=== PATIENT | female | born 1950 | race Caucasian/White ===

== ENCOUNTER 2017-10-31 12:56 | Observation (INO) | payer BC ==
[2017-10-31 13:43] LABS: ADD MAN DIFF? NO
[2017-10-31 13:47] LABS: BASOPHILS % 0.5 % (0.0-2.0); EOSINOPHILS # 0.1 10^3/ul (0.0-0.5); EOSINOPHILS % 0.9 % (0.0-7.0); HEMATOCRIT 40.9 % (37.0-47.0); LYMPHOCYTES # 1.4 10^3/ul (0.8-2.9); LYMPHOCYTES % 21.5 % (15.0-51.0); MEAN CORPUSCULAR HEMOGLOBIN 27.8 pg (29.0-33.0); MEAN CORPUSCULAR HGB CONC 31.8 g/dl (32.0-37.0); MEAN CORPUSCULAR VOLUME 87.4 fl (82.0-101.0); MEAN PLATELET VOLUME 10.1 fl (7.4-10.4); MONOCYTE # 0.5 10^3/ul (0.3-0.9); MONOCYTES % 7.9 % (0.0-11.0); NEUTROPHIL # 4.4 10^3/ul (1.6-7.5); NEUTROPHILS % 68.9 % (39.0-77.0); PLATELET COUNT 232 10^3/UL (140-415); RED BLOOD COUNT 4.68 10^6/ul (4.20-5.40); RED CELL DISTRIBUTION WIDTH 13.6 % (11.5-14.5)
[2017-10-31 13:47] LABS: WHITE BLOOD COUNT 6.4 10^3/ul (4.8-10.8)
[2017-10-31] MEDS ORDERED: NITROGLYCERIN (SL) 0.4 MG TAB SL (14:00)
[2017-10-31 14:08] LABS: D-DIMER 695.43 ng/ml (<460)
[2017-10-31] MEDS: ASPIRIN 81 MG TAB PO (14:11)
[2017-10-31] MEDS: SOD CHLORIDE 0.9% 1,000 ML IV (14:12)
[2017-10-31] MEDS: NITROGLYCERIN 2% 1 GM OINT PKT TD (14:13)
[2017-10-31 14:16] LABS: ANION GAP 16 (8-16); BLOOD UREA NITROGEN 24 mg/dl (7-20); CALCIUM 9.5 mg/dl (8.4-10.2); CARBON DIOXIDE 26 mmol/L (21-31); CHLORIDE 105 mmol/L (97-110); CREATININE 0.74 mg/dl (0.44-1.00); GLUCOSE 97 mg/dl (70-220); POTASSIUM 4.5 mmol/L (3.5-5.1); SODIUM 142 mmol/L (135-144)
[2017-10-31 14:23] LABS: FREE T4 (FREE THYROXINE) 1.21 ng/dl (0.78-2.44)
[2017-10-31 14:26] LABS: TROPONIN-I < 0.010 ng/ml (0.000-0.120)
[2017-10-31] MEDS ORDERED: ONDANSETRON 4 MG INJ IV ×2 (15:00→16:30)
[2017-10-31] MEDS ORDERED: ACETAMINOPHEN 325 MG TAB PO (15:00)
[2017-10-31] MEDS: IOHEXOL (16:14)
[2017-10-31] MEDS: SOD CHLORIDE 0.9% 200 ML (16:14)
[2017-10-31] MEDS ORDERED: NACL 0.9% 3 ML SYG IV (16:30)
[2017-10-31] MEDS ORDERED: morphine 2 MG INJ IV (16:30)
[2017-10-31 18:37] LABS: CREATINE KINASE 55 IU/L (23-200)
[2017-10-31 18:50] LABS: CK INDEX 1.7; CK-MB 0.93 ng/ml (0.0-2.4); TROPONIN-I < 0.010 ng/ml (0.000-0.120)
[2017-10-31] MEDS: FAMOTIDINE 20 MG INJ IV (21:00)
[2017-11-01] MEDS: ASPIRIN 81 MG TAB PO (08:32)
[2017-11-01] MEDS: ENOXAPARIN 40 MG/0.4 ML SYG SC (08:38)
[2017-11-01] MEDS ORDERED: morphine LIQ (10 MG/5 ML) CUP PO (15:30)
[2017-11-01] MEDS: AMLODIPINE 5 MG TAB PO (16:00)
[2017-11-01] MEDS: SERTRALINE 50 MG TAB PO (17:00)
[2017-11-01] MEDS ORDERED: GABAPENTIN 100 MG CAP PO (21:00)
[2017-11-01] MEDS ORDERED: ATORVASTATIN 20 MG TAB PO (21:00)
[2017-11-01] MEDS ORDERED: METOPROLOL 25 MG TAB PO (21:00)
[2017-11-01] MEDS ORDERED: CALCIUM CARBONATE 1.25 GM TAB PO (21:00)
[2017-11-01] MEDS ORDERED: RANITIDINE 150 MG TAB PO (21:00)
[2017-11-02] MEDS ORDERED: ASPIRIN (EC) 81 MG TAB PO (09:00)
[2017-11-02] MEDS ORDERED: LANSOPRAZOLE 15 MG CAP PO (09:00)
== END 2017-11-01 17:00 | disposition home or self-care (01) ==
LOC: E/R 12:56 → MS4 15:13
DX: R07.9 Chest pain, unspecified (principal)
CPT/HCPCS: 36415; 71045; 71275; 80048; 82550; 82553; 84439; 84443; 84484; 85025; 85378; 93005; 93306; 99285-25; G0378